=== PATIENT | male | born 1950 | race Two or more races ===

== ENCOUNTER 2018-03-06 09:02 | Inpatient (IN) ==
[2018-03-06] MEDS ORDERED: ONDANSETRON 4 MG/2 ML VIAL IV PRN (11:53)
[2018-03-06] MEDS ORDERED: GLUCAGON 1 MG VIAL IM PRN (11:53)
[2018-03-06] MEDS ORDERED: DEXTROSE 50% 25 GM/50 ML SYRINGE IV PRN (11:53)
[2018-03-06] MEDS ORDERED: DOCUSATE SODIUM 100 MG CAPSULE PO PRN (11:53)
[2018-03-06 12:21] LABS: Basophils % 0.2 % (0.0-0.8); Eosinophils % 0.2 % (0.00-10.9); Hematocrit 35.1 VOL% (42.0-52.0); Hemoglobin 10.9 GM/DL (14.0-18.0); Immature Granulocytes % 0.8 %; Immature Granulocytes Absolute 0.14 #; Lymphocytes # 0.7 10*3/uL (1.4-4.0); Mean Corpuscular HGB Conc 31.1 GM/DL (32-36); Mean Corpuscular Hemoglobin 26 PG (27-34); Mean Platelet Volume 9.6 FL (9.6-12.0); Monocytes # 1.5 10*3/uL (0.11-0.8); Monocytes % 8.2 % (1.7-12.7); Neutrophils # 16.1 10*3/uL (1.4-7.4); Neutrophils % 86.6 % (38.7-73.9); Platelet Count 171 T/CUMM (130-400); Red Blood Count 4.18 MC/CUMM (3.8-5.5); Red Cell Distribution Width 15.1 % (9.3-17.3); White Blood Count 18.6 T/CUMM (4-12)
[2018-03-06 12:56] LABS: Anisocytosis 1+; Band Neutrophils 4 % (0-10); Eosinophils 1 % (0-10); Lymphocytes 2 % (20-55); Platelet Estimate Normal; Poikilocytosis Slight; Segmented Neutrophils 86 % (50-85); Total Cells Counted 100
[2018-03-06 13:09] LABS: Albumin 2.3 G/DL (3.4-5.0); Bilirubin,Total 0.5 MG/DL (0.2-1.0); Calcium 8.8 MG/DL (8.5-10.1); Osmolality,Calculated 294.3 MOS/KG (273-304); Potassium 5.2 MMOL/L (3.5-5.1); Total Protein 7.2 G/DL (6.4-8.3)
[2018-03-06] MEDS ORDERED: cefTRIAXone 1,000 MG in SYRINGE 1 EACH IV SCH (14:00)
[2018-03-06] MEDS: SODIUM CHLORIDE 0.45% 1,000 ML IV SCH (14:23)
[2018-03-06] MEDS: ENOXAPARIN 30 MG/0.3 ML SYRINGE SUBCUT SCH (14:40)
[2018-03-06] MEDS: PIPERACILLIN/TAZOBACTAM 3,375 MG in SODIUM CHLORIDE 0.9% 100 ML IV SCH ×2 (14:40→21:52)
[2018-03-06 14:47] LABS: Apearance,Urine Slightly Hazy (Clear); Bacteria,Urine Occasional /HPF (Few); Bilirubin,Urine Negative (Negative); Blood, Urine Small mg/dL (Negative); Glucose,Urine (UA) Negative (Negative); Ketones,Urine Negative (Negative); Mucus,Urine Occasional /LPF (Occasional); Nitrite,Urine Negative (Negative); Protein,Urine 100 MG/DL; RBC,Urine 7 /HPF (0-4); Squamous Epithelial Cell,Urine Occasional /HPF (0-10); Urine Color Straw (Yellow); Urine Specific Gravity 1.011 (1.001-1.035); Urine Urobilinogen < 2.0 EU/DL (0.2-1.0); WBC,Urine 11 /HPF (0-6)
[2018-03-06] MEDS: INSULIN LISPRO 100 UNIT/ML SUBCUT SCH ×2 (17:59→22:16)
[2018-03-06] MEDS: CLORAZEPATE 3.75 MG TABLET PO PRN (18:01)
[2018-03-06] MEDS: ACETAMINOPHEN 325 MG TABLET PO PRN (21:57)
[2018-03-07 05:24] LABS: Basophils % 0.1 % (0.0-0.8); Eosinophils # 0.1 10*3/uL (0.0-0.87); Eosinophils % 0.9 % (0.00-10.9); Hematocrit 28.2 VOL% (42.0-52.0); Hemoglobin 8.6 GM/DL (14.0-18.0); Immature Granulocytes % 1.2 %; Immature Granulocytes Absolute 0.16 #; Lymphocytes # 1.2 10*3/uL (1.4-4.0); Lymphocytes % 8.5 % (21.2-54.2); Mean Corpuscular HGB Conc 30.5 GM/DL (32-36); Mean Corpuscular Hemoglobin 26 PG (27-34); Mean Corpuscular Volume 85.2 FL (87-102); Mean Platelet Volume 10.3 FL (9.6-12.0); Monocytes # 1.3 10*3/uL (0.11-0.8); Monocytes % 9.3 % (1.7-12.7); Neutrophils # 10.8 10*3/uL (1.4-7.4); Platelet Count 135 T/CUMM (130-400); Red Blood Count 3.31 MC/CUMM (3.8-5.5); Red Cell Distribution Width 15.3 % (9.3-17.3); White Blood Count 13.5 T/CUMM (4-12)
[2018-03-07 05:47] LABS: Albumin 1.8 G/DL (3.4-5.0); Bilirubin,Total 1.1 MG/DL (0.2-1.0); Calcium 8.3 MG/DL (8.5-10.1); Osmolality,Calculated 294.3 MOS/KG (273-304); Potassium 4.9 MMOL/L (3.5-5.1); Total Protein 5.7 G/DL (6.4-8.3)
[2018-03-07] MEDS: PIPERACILLIN/TAZOBACTAM 3,375 MG in SODIUM CHLORIDE 0.9% 100 ML IV SCH ×4 (06:55→21:50)
[2018-03-07] MEDS: SODIUM CHLORIDE 0.45% 1,000 ML IV SCH ×2 (06:57→08:35)
[2018-03-07] MEDS: INSULIN LISPRO 100 UNIT/ML SUBCUT SCH ×4 (08:00→20:31)
[2018-03-07] MEDS: SODIUM BICARB INJ 150 MEQ in DEXTROSE 5% 850 ML IV SCH ×3 (08:45→23:05)
[2018-03-07] MEDS: PANTOPRAZOLE 40 MG TABLET PO SCH (08:47)
[2018-03-07] MEDS ORDERED: SODIUM PHOSPHATE ENEMA 133 ML BOTTLE RECTAL ONE (10:02)
[2018-03-07] MEDS ORDERED: BISACODYL 5 MG TABLET PO ONE (10:02)
[2018-03-07] MEDS ORDERED: MAGNESIUM HYDROXIDE SUSP 30 ML UDCUP PO ONE (10:02)
[2018-03-07] MEDS: ENOXAPARIN 30 MG/0.3 ML SYRINGE SUBCUT SCH (12:00)
[2018-03-07] MEDS ORDERED: MAGNESIUM SULF RIDER 2 GM in PREMIX 1 EACH IV ONE (13:51)
[2018-03-07] MEDS ORDERED: methylPREDNISolone SOD SUC 125 MG/2 ML VIAL IV ONE (13:56)
[2018-03-07] MEDS: methylPREDNISolone SOD SUC 40 MG/1 ML VIAL IV SCH (20:28)
[2018-03-08] MEDS: methylPREDNISolone SOD SUC 40 MG/1 ML VIAL IV SCH ×3 (03:18→22:59)
[2018-03-08 05:11] LABS: Basophils % 0.1 % (0.0-0.8); Hematocrit 28.4 VOL% (42.0-52.0); Immature Granulocytes % 0.5 %; Immature Granulocytes Absolute 0.06 #; Lymphocytes # 0.2 10*3/uL (1.4-4.0); Lymphocytes % 2.1 % (21.2-54.2); Mean Corpuscular HGB Conc 31.7 GM/DL (32-36); Mean Corpuscular Hemoglobin 26 PG (27-34); Mean Corpuscular Volume 81.6 FL (87-102); Mean Platelet Volume 10.5 FL (9.6-12.0); Monocytes # 0.1 10*3/uL (0.11-0.8); Monocytes % 0.9 % (1.7-12.7); Neutrophils % 96.4 % (38.7-73.9); Platelet Count 151 T/CUMM (130-400); Red Blood Count 3.48 MC/CUMM (3.8-5.5); Red Cell Distribution Width 14.9 % (9.3-17.3); White Blood Count 11.4 T/CUMM (4-12)
[2018-03-08 05:33] LABS: Albumin 1.9 G/DL (3.4-5.0); Calcium 8.3 MG/DL (8.5-10.1); Osmolality,Calculated 301.1 MOS/KG (273-304); Potassium 4.6 MMOL/L (3.5-5.1); Total Protein 6.5 G/DL (6.4-8.3)
[2018-03-08 05:58] LABS: Platelet Estimate Adequate; Polychromasia Slight; Segmented Neutrophils 100 % (50-85); Total Cells Counted 100
[2018-03-08] MEDS: PIPERACILLIN/TAZOBACTAM 3,375 MG in SODIUM CHLORIDE 0.9% 100 ML IV SCH (06:07)
[2018-03-08] MEDS: INSULIN LISPRO 100 UNIT/ML SUBCUT SCH ×4 (09:22→22:58)
[2018-03-08] MEDS: CLORAZEPATE 3.75 MG TABLET PO PRN (09:22)
[2018-03-08] MEDS: PANTOPRAZOLE 40 MG TABLET PO SCH (09:22)
[2018-03-08] MEDS: ENOXAPARIN 30 MG/0.3 ML SYRINGE SUBCUT SCH (11:13)
[2018-03-08] MEDS: SODIUM BICARB INJ 150 MEQ in DEXTROSE 5% 850 ML IV SCH ×2 (11:14→23:03)
[2018-03-08] MEDS: cefTRIAXone 1,000 MG in SYRINGE 1 EACH IV SCH (13:42)
[2018-03-09] MEDS: methylPREDNISolone SOD SUC 40 MG/1 ML VIAL IV SCH ×2 (04:47→16:42)
[2018-03-09 05:11] LABS: Basophils % 0.1 % (0.0-0.8); Hematocrit 28.6 VOL% (42.0-52.0); Hemoglobin 9.1 GM/DL (14.0-18.0); Immature Granulocytes % 0.7 %; Immature Granulocytes Absolute 0.13 #; Lymphocytes # 0.3 10*3/uL (1.4-4.0); Lymphocytes % 1.4 % (21.2-54.2); Mean Corpuscular HGB Conc 31.8 GM/DL (32-36); Mean Corpuscular Hemoglobin 26 PG (27-34); Monocytes # 0.3 10*3/uL (0.11-0.8); Monocytes % 1.6 % (1.7-12.7); Neutrophils % 96.2 % (38.7-73.9); Platelet Count 193 T/CUMM (130-400); Red Blood Count 3.53 MC/CUMM (3.8-5.5); Red Cell Distribution Width 14.6 % (9.3-17.3); White Blood Count 18.7 T/CUMM (4-12)
[2018-03-09 05:23] LABS: Calcium 8.3 MG/DL (8.5-10.1); Osmolality,Calculated 298.8 MOS/KG (273-304); Potassium 3.5 MMOL/L (3.5-5.1)
[2018-03-09 06:27] LABS: Anisocytosis 1+; Hypochromasia 1+; Lymphocytes 2 % (20-55); Segmented Neutrophils 98 % (50-85); Target Cells 1+; Total Cells Counted 100
[2018-03-09 06:28] LABS: Platelet Estimate Adequate
[2018-03-09] MEDS: INSULIN LISPRO 100 UNIT/ML SUBCUT SCH ×4 (09:05→22:03)
[2018-03-09] MEDS: PANTOPRAZOLE 40 MG TABLET PO SCH (09:05)
[2018-03-09] MEDS: cefTRIAXone 1,000 MG in SYRINGE 1 EACH IV SCH (11:38)
[2018-03-09] MEDS: ENOXAPARIN 30 MG/0.3 ML SYRINGE SUBCUT SCH (11:40)
[2018-03-09] MEDS: ACETAMINOPHEN 325 MG TABLET PO PRN (16:45)
[2018-03-10 06:01] LABS: Basophils % 0.1 % (0.0-0.8); Hematocrit 32.1 VOL% (42.0-52.0); Hemoglobin 9.9 GM/DL (14.0-18.0); Immature Granulocytes % 0.4 %; Immature Granulocytes Absolute 0.06 #; Lymphocytes # 0.3 10*3/uL (1.4-4.0); Lymphocytes % 2.2 % (21.2-54.2); Mean Corpuscular HGB Conc 30.8 GM/DL (32-36); Mean Corpuscular Hemoglobin 26 PG (27-34); Mean Corpuscular Volume 83.8 FL (87-102); Mean Platelet Volume 11.1 FL (9.6-12.0); Monocytes # 0.3 10*3/uL (0.11-0.8); Monocytes % 2.3 % (1.7-12.7); Neutrophils # 13.1 10*3/uL (1.4-7.4); Platelet Count 186 T/CUMM (130-400); Red Blood Count 3.83 MC/CUMM (3.8-5.5); Red Cell Distribution Width 14.6 % (9.3-17.3); White Blood Count 13.8 T/CUMM (4-12)
[2018-03-10] MEDS: methylPREDNISolone SOD SUC 40 MG/1 ML VIAL IV SCH (06:07)
[2018-03-10 06:36] LABS: Hypochromasia 1+; Lymphocytes 1 % (20-55); Segmented Neutrophils 96 % (50-85); Total Cells Counted 100
[2018-03-10 06:37] LABS: Microcytosis Slight
[2018-03-10 07:17] LABS: Calcium 8.4 MG/DL (8.5-10.1); Osmolality,Calculated 303.5 MOS/KG (273-304); Potassium 3.5 MMOL/L (3.5-5.1)
[2018-03-10] MEDS: INSULIN LISPRO 100 UNIT/ML SUBCUT SCH ×4 (08:56→20:53)
[2018-03-10] MEDS: PANTOPRAZOLE 40 MG TABLET PO SCH (08:56)
[2018-03-10] MEDS: glipiZIDE 5 MG TABLET PO SCH (08:56)
[2018-03-10] MEDS: ACETAMINOPHEN 325 MG TABLET PO PRN (11:17)
[2018-03-10] MEDS: cefTRIAXone 1,000 MG in SYRINGE 1 EACH IV SCH (12:29)
[2018-03-10] MEDS: ENOXAPARIN 30 MG/0.3 ML SYRINGE SUBCUT SCH (12:29)
[2018-03-10] MEDS: amLODIPine 10 MG TABLET PO SCH (12:49)
[2018-03-10] MEDS: hydrALAZINE 20 MG/1 ML VIAL IV PRN (23:45)
[2018-03-11 05:50] LABS: Calcium 8.3 MG/DL (8.5-10.1); Osmolality,Calculated 311.1 MOS/KG (273-304); Potassium 3.2 MMOL/L (3.5-5.1)
[2018-03-11 05:57] LABS: Hematocrit 33.6 VOL% (42.0-52.0); Hemoglobin 10.2 GM/DL (14.0-18.0); Immature Granulocytes % 0.7 %; Immature Granulocytes Absolute 0.08 #; Lymphocytes # 0.9 10*3/uL (1.4-4.0); Lymphocytes % 7.7 % (21.2-54.2); Mean Corpuscular HGB Conc 30.4 GM/DL (32-36); Mean Corpuscular Hemoglobin 26 PG (27-34); Mean Corpuscular Volume 84.6 FL (87-102); Mean Platelet Volume 10.8 FL (9.6-12.0); Monocytes # 0.8 10*3/uL (0.11-0.8); Monocytes % 7.3 % (1.7-12.7); Neutrophils # 9.3 10*3/uL (1.4-7.4); Neutrophils % 84.3 % (38.7-73.9); Platelet Count 207 T/CUMM (130-400); Red Blood Count 3.97 MC/CUMM (3.8-5.5); Red Cell Distribution Width 14.6 % (9.3-17.3); White Blood Count 11.1 T/CUMM (4-12)
[2018-03-11] MEDS: predniSONE 20 MG TABLET PO SCH (08:13)
[2018-03-11] MEDS: amLODIPine 10 MG TABLET PO SCH (08:13)
[2018-03-11] MEDS: ACETAMINOPHEN 325 MG TABLET PO PRN (08:13)
[2018-03-11] MEDS: PANTOPRAZOLE 40 MG TABLET PO SCH (08:13)
[2018-03-11] MEDS: CEFUROXIME 500 MG TABLET PO SCH (08:14)
[2018-03-11] MEDS: INSULIN LISPRO 100 UNIT/ML SUBCUT SCH ×4 (09:07→20:58)
[2018-03-11] MEDS: glipiZIDE 5 MG TABLET PO SCH (09:22)
[2018-03-11] MEDS: ENOXAPARIN 30 MG/0.3 ML SYRINGE SUBCUT SCH (14:42)
[2018-03-11] MEDS: GABAPENTIN 100 MG CAPSULE PO SCH ×2 (14:43→20:58)
[2018-03-12] MEDS: INSULIN LISPRO 100 UNIT/ML SUBCUT SCH ×4 (07:54→21:05)
[2018-03-12] MEDS: glipiZIDE 5 MG TABLET PO SCH (08:42)
[2018-03-12] MEDS: amLODIPine 10 MG TABLET PO SCH (08:43)
[2018-03-12] MEDS: GABAPENTIN 100 MG CAPSULE PO SCH ×3 (08:44→21:04)
[2018-03-12] MEDS: CEFUROXIME 500 MG TABLET PO SCH (08:44)
[2018-03-12] MEDS: PANTOPRAZOLE 40 MG TABLET PO SCH (08:44)
[2018-03-12] MEDS: predniSONE 20 MG TABLET PO SCH (08:44)
[2018-03-12] MEDS: METOPROLOL TARTRATE 50 MG TABLET PO SCH ×2 (09:03→21:04)
[2018-03-12] MEDS ORDERED: LIDOCAINE 1%/EPI INJ 20 ML VIAL ONE (11:29)
[2018-03-12] MEDS ORDERED: TRIAMCINOLONE ACETONIDE 40 MG/1 ML VIAL ONE (11:29)
[2018-03-12] MEDS ORDERED: VANCOMYCIN 500 MG VIAL ONE (11:29)
[2018-03-12] MEDS ORDERED: VANCOMYCIN INJ 1,250 MG in SODIUM CHLORIDE 0.9% 250 ML IV ONE (12:00)
[2018-03-12] MEDS ORDERED: PROPOFOL 200 MG/20 ML VIAL IV ONE (12:31)
[2018-03-12] MEDS ORDERED: MIDAZOLAM 2 MG/2 ML VIAL ONE (12:32)
[2018-03-12] MEDS ORDERED: fentaNYL 100 MCG/2 ML VIAL ONE (12:32)
[2018-03-12] MEDS: cefTRIAXone 1,000 MG in SYRINGE 1 EACH IV SCH (13:20)
[2018-03-12] MEDS ORDERED: VANCOMYCIN INJ 1,000 MG in SODIUM CHLORIDE 0.9% 250 ML IV PRN (14:00)
[2018-03-13] MEDS: INSULIN LISPRO 100 UNIT/ML SUBCUT SCH ×4 (07:50→21:34)
[2018-03-13] MEDS: glipiZIDE 5 MG TABLET PO SCH (07:55)
[2018-03-13] MEDS: GABAPENTIN 100 MG CAPSULE PO SCH ×3 (08:30→21:34)
[2018-03-13] MEDS: METOPROLOL TARTRATE 50 MG TABLET PO SCH ×2 (08:30→21:34)
[2018-03-13] MEDS: predniSONE 20 MG TABLET PO SCH (08:30)
[2018-03-13] MEDS: PANTOPRAZOLE 40 MG TABLET PO SCH (08:30)
[2018-03-13] MEDS: amLODIPine 10 MG TABLET PO SCH (08:31)
[2018-03-13] MEDS ORDERED: VANCOMYCIN INJ 1,000 MG in SODIUM CHLORIDE 0.9% 250 ML IV ONE (11:00)
[2018-03-13] MEDS: cefTRIAXone 1,000 MG in SYRINGE 1 EACH IV SCH (12:23)
[2018-03-14] MEDS: INSULIN LISPRO 100 UNIT/ML SUBCUT SCH ×4 (08:11→21:49)
[2018-03-14] MEDS: predniSONE 20 MG TABLET PO SCH (08:43)
[2018-03-14] MEDS: amLODIPine 10 MG TABLET PO SCH (08:43)
[2018-03-14] MEDS: glipiZIDE 5 MG TABLET PO SCH (08:43)
[2018-03-14] MEDS: PANTOPRAZOLE 40 MG TABLET PO SCH (08:43)
[2018-03-14] MEDS: METOPROLOL TARTRATE 50 MG TABLET PO SCH ×2 (08:43→21:49)
[2018-03-14] MEDS: GABAPENTIN 100 MG CAPSULE PO SCH ×3 (08:43→21:49)
[2018-03-14] MEDS ORDERED: VANCOMYCIN INJ 1,000 MG in SODIUM CHLORIDE 0.9% 250 ML IV ONE (09:00)
[2018-03-14] MEDS: MORPHINE 10 MG/1 ML VIAL IV PRN (09:54)
[2018-03-14] MEDS: cefTRIAXone 1,000 MG in SYRINGE 1 EACH IV SCH (12:35)
[2018-03-15] MEDS: INSULIN LISPRO 100 UNIT/ML SUBCUT SCH ×4 (07:35→20:43)
[2018-03-15] MEDS: GABAPENTIN 100 MG CAPSULE PO SCH ×3 (08:29→20:43)
[2018-03-15] MEDS: predniSONE 20 MG TABLET PO SCH (08:29)
[2018-03-15] MEDS: METOPROLOL TARTRATE 50 MG TABLET PO SCH ×2 (08:29→20:43)
[2018-03-15] MEDS: glipiZIDE 5 MG TABLET PO SCH (08:29)
[2018-03-15] MEDS: PANTOPRAZOLE 40 MG TABLET PO SCH (08:29)
[2018-03-15] MEDS: amLODIPine 10 MG TABLET PO SCH (08:34)
[2018-03-15 08:43] LABS: Osmolality,Calculated 303.3 MOS/KG (273-304); Potassium 4.2 MMOL/L (3.5-5.1)
[2018-03-15] MEDS ORDERED: MAGNESIUM SULF RIDER 2 GM in PREMIX 1 EACH IV ONE (10:13)
[2018-03-15] MEDS: cefTRIAXone 2,000 MG in SYRINGE 1 EACH IV SCH (11:07)
[2018-03-15] MEDS ORDERED: VANCOMYCIN INJ 1,000 MG in SODIUM CHLORIDE 0.9% 250 ML IV ONE (12:00)
[2018-03-16] MEDS: INSULIN LISPRO 100 UNIT/ML SUBCUT SCH ×4 (08:25→20:41)
[2018-03-16] MEDS: predniSONE 20 MG TABLET PO SCH (08:46)
[2018-03-16] MEDS: GABAPENTIN 100 MG CAPSULE PO SCH ×3 (08:46→20:40)
[2018-03-16] MEDS: METOPROLOL TARTRATE 50 MG TABLET PO SCH ×2 (08:46→20:41)
[2018-03-16] MEDS: PANTOPRAZOLE 40 MG TABLET PO SCH (08:46)
[2018-03-16] MEDS: amLODIPine 10 MG TABLET PO SCH (08:46)
[2018-03-16] MEDS: glipiZIDE 5 MG TABLET PO SCH (08:47)
[2018-03-16] MEDS: cefTRIAXone 2,000 MG in SYRINGE 1 EACH IV SCH (11:53)
[2018-03-16] MEDS: VANCOMYCIN INJ 1,000 MG in SODIUM CHLORIDE 0.9% 250 ML IV SCH (14:04)
[2018-03-17 05:13] LABS: Osmolality,Calculated 303.1 MOS/KG (273-304); Potassium 4.2 MMOL/L (3.5-5.1)
[2018-03-17] MEDS: INSULIN LISPRO 100 UNIT/ML SUBCUT SCH ×4 (07:30→20:30)
[2018-03-17] MEDS: glipiZIDE 5 MG TABLET PO SCH (07:40)
[2018-03-17] MEDS: predniSONE 20 MG TABLET PO SCH (08:34)
[2018-03-17] MEDS: amLODIPine 10 MG TABLET PO SCH (08:34)
[2018-03-17] MEDS: METOPROLOL TARTRATE 50 MG TABLET PO SCH ×2 (08:34→20:29)
[2018-03-17] MEDS: GABAPENTIN 100 MG CAPSULE PO SCH ×3 (08:34→20:29)
[2018-03-17] MEDS: PANTOPRAZOLE 40 MG TABLET PO SCH (08:34)
[2018-03-17] MEDS: cefTRIAXone 2,000 MG in SYRINGE 1 EACH IV SCH (10:27)
[2018-03-17] MEDS: VANCOMYCIN INJ 1,000 MG in SODIUM CHLORIDE 0.9% 250 ML IV SCH (14:12)
[2018-03-18] MEDS: INSULIN LISPRO 100 UNIT/ML SUBCUT SCH ×4 (07:33→20:30)
[2018-03-18] MEDS: PANTOPRAZOLE 40 MG TABLET PO SCH (09:26)
[2018-03-18] MEDS: glipiZIDE 5 MG TABLET PO SCH (09:26)
[2018-03-18] MEDS: METOPROLOL TARTRATE 50 MG TABLET PO SCH ×2 (09:26→20:29)
[2018-03-18] MEDS: GABAPENTIN 100 MG CAPSULE PO SCH ×3 (09:26→20:29)
[2018-03-18] MEDS: predniSONE 20 MG TABLET PO SCH (09:27)
[2018-03-18] MEDS: amLODIPine 10 MG TABLET PO SCH (09:27)
[2018-03-18] MEDS: cefTRIAXone 2,000 MG in SYRINGE 1 EACH IV SCH (12:52)
[2018-03-19] MEDS: VANCOMYCIN INJ 1,000 MG in SODIUM CHLORIDE 0.9% 250 ML IV SCH ×2 (01:04→02:29)
[2018-03-19] MEDS: hydrALAZINE 20 MG/1 ML VIAL IV PRN (04:58)
[2018-03-19] MEDS: INSULIN LISPRO 100 UNIT/ML SUBCUT SCH ×4 (07:06→21:18)
[2018-03-19] MEDS: MORPHINE 10 MG/1 ML VIAL IV PRN (07:41)
[2018-03-19] MEDS: predniSONE 20 MG TABLET PO SCH (09:57)
[2018-03-19] MEDS: METOPROLOL TARTRATE 50 MG TABLET PO SCH ×2 (09:57→21:17)
[2018-03-19] MEDS: GABAPENTIN 100 MG CAPSULE PO SCH ×3 (09:57→21:17)
[2018-03-19] MEDS: PANTOPRAZOLE 40 MG TABLET PO SCH (09:57)
[2018-03-19] MEDS: amLODIPine 10 MG TABLET PO SCH (09:57)
[2018-03-19] MEDS: glipiZIDE 5 MG TABLET PO SCH (09:58)
[2018-03-19] MEDS: cefTRIAXone 2,000 MG in SYRINGE 1 EACH IV SCH (11:28)
[2018-03-19] MEDS: hydrALAZINE 25 MG TABLET PO SCH ×2 (15:58→21:17)
[2018-03-20] MEDS: MORPHINE 10 MG/1 ML VIAL IV PRN (04:47)
[2018-03-20 06:35] LABS: Calcium 8.2 MG/DL (8.5-10.1); Potassium 4.8 MMOL/L (3.5-5.1)
[2018-03-20] MEDS: METOPROLOL TARTRATE 50 MG TABLET PO SCH ×2 (08:20→21:14)
[2018-03-20] MEDS: glipiZIDE 5 MG TABLET PO SCH (08:21)
[2018-03-20] MEDS: predniSONE 20 MG TABLET PO SCH (08:21)
[2018-03-20] MEDS: PANTOPRAZOLE 40 MG TABLET PO SCH (08:21)
[2018-03-20] MEDS: amLODIPine 10 MG TABLET PO SCH (08:21)
[2018-03-20] MEDS: GABAPENTIN 100 MG CAPSULE PO SCH ×3 (08:21→21:14)
[2018-03-20] MEDS: INSULIN LISPRO 100 UNIT/ML SUBCUT SCH ×4 (08:22→21:14)
[2018-03-20] MEDS: hydrALAZINE 25 MG TABLET PO SCH ×3 (08:32→21:14)
[2018-03-20] MEDS: cefTRIAXone 2,000 MG in SYRINGE 1 EACH IV SCH (11:40)
[2018-03-20] MEDS: VANCOMYCIN INJ 1,000 MG in SODIUM CHLORIDE 0.9% 250 ML IV SCH (15:25)
[2018-03-21] MEDS: ACETAMINOPHEN 325 MG TABLET PO PRN ×2 (03:19→09:14)
[2018-03-21 05:19] LABS: Calcium 7.8 MG/DL (8.5-10.1); Osmolality,Calculated 300.1 MOS/KG (273-304); Potassium 4.6 MMOL/L (3.5-5.1)
[2018-03-21] MEDS: glipiZIDE 5 MG TABLET PO SCH (07:45)
[2018-03-21] MEDS: INSULIN LISPRO 100 UNIT/ML SUBCUT SCH ×2 (07:46→11:40)
[2018-03-21] MEDS: predniSONE 20 MG TABLET PO SCH (09:14)
[2018-03-21] MEDS: hydrALAZINE 25 MG TABLET PO SCH ×2 (09:14→20:05)
[2018-03-21] MEDS: GABAPENTIN 100 MG CAPSULE PO SCH ×2 (09:14→20:05)
[2018-03-21] MEDS: PANTOPRAZOLE 40 MG TABLET PO SCH (09:15)
[2018-03-21] MEDS: METOPROLOL TARTRATE 50 MG TABLET PO SCH (09:15)
[2018-03-21] MEDS: amLODIPine 10 MG TABLET PO SCH (09:15)
[2018-03-21] MEDS: cefTRIAXone 2,000 MG in SYRINGE 1 EACH IV SCH (11:25)
[2018-03-21 12:06] VITALS: BP 148/99
== END 2018-03-21 15:30 | disposition home health service (06) | DRG 871 ==
LOC: N.3E → SUATTDRO 11:54
PROVIDERS: ADMIT Internal Medicine; ATTEND Hospitalist